=== PATIENT | female | born 1960 | race Caucasian/White ===

== ENCOUNTER 2016-06-18 08:35 | Day surgery (SDC) | payer BC ==
[2016-06-14 10:14] VITALS: BMI 25.0
[2016-06-18] MEDS ORDERED: PROPOFOL 20 ML ONE ×2 (08:42)
[2016-06-18] MEDS ORDERED: LIDOCAINE HCL/PF 2% SDV 5ML VIAL ONE (08:43)
[2016-06-18 10:33] VITALS: TEMP 97.4
[2016-06-18 10:56] VITALS: BP 118/78; PULSE 77
--- NOTE | 2016-06-19 11:49 | PATH ---
Surgical Pathology Report Patient Name: SRIRAM OLVERA [facility]. Rec. #: [id number] /Age/Gender: 1960 (Age: 55) / F Account: [id number] Location: [facility]-ENDOSCOPY Taken: 06/18/2016 Received: 06/18/2016 Reported: 06/19/2016 Physicians: Hua Dave M.D. Specimen(s) Received A: BX DUODENUM B: BX ANTRUM Clinical History GERD, rule out colon cancer Rule out celiac disease, gastritis, esophagitis Final Diagnosis A. DUODENUM, BIOPSY: DUODENAL MUCOSA WITH NO PATHOLOGIC CHANGES. NO HISTOLOGIC EVIDENCE OF GLUTEN SENSITIVE ENTEROPATHY (CELIAC SPRUE) IDENTIFIED. B. STOMACH, ANTRUM, BIOPSY: FOCAL MILD CHRONIC GASTRITIS. IMMUNOSTAIN FOR H. PYLORI IS NEGATIVE. Electronically Signed Raymond Zacarias M.D. Gross Description A. Received in formalin, labeled "duodenum" are 2 harris, irregular portions of soft tissue averaging 0.7 cm. in greatest dimension. The specimens are submitted in toto in one cassette. B. Received in formalin, labeled "antrum" are 2 harris, irregular portions of soft tissue measuring 0.4 and 0.5 cm. in greatest dimension. The specimens are submitted in toto in one cassette. 06/18/201606/18/2016
== END 2016-06-18 11:00 | disposition home or self-care (01) ==
LOC: FASU-ENDO 08:35
PROVIDERS: ATTEND Internal Medicine Gastroenterology
PROC: 0DB98ZX Excision of Duodenum, Via Natural or Artificial Opening Endoscopic, Diagnostic (ICD-10-PCS; principal; 2016-06-18 09:50)
PROC: 0DB68ZX Excision of Stomach, Via Natural or Artificial Opening Endoscopic, Diagnostic (ICD-10-PCS; 2016-06-18 09:50)
DX: K29.50 Unspecified chronic gastritis without bleeding (principal); K20.8 Other esophagitis; K44.9 Diaphragmatic hernia without obstruction or gangrene
CPT/HCPCS: 88305-TC; 88342-TC

== ENCOUNTER 2017-08-28 11:32 | Emergency (ER) | payer BC ==
[2017-08-28 11:48] VITALS: BP 139/92; PULSE 104; TEMP 99.1; BMI 25.7
--- NOTE | 2017-08-28 11:48 | PDOC ---
Rapid Medical Evaluation Chief Complaint: Pain, Acute Time Seen by Provider: 08/28/17 11:45 Medical Evaluation: Allergies Allergy/AdvReac Type Severity Reaction Status Date / Time No Known Allergies Allergy Verified 08/28/17 11:44 08/28/17 11:46 pt with no appendix with right lower mid abd pain since 4 am. no n/v/d/fever, no dysuria.
[2017-08-28 12:40] LABS: URINE APPEARANCE CLEAR; URINE BILIRUBIN NEGATIVE (NEGATIVE); URINE BLOOD NEGATIVE (NEGATIVE); URINE COLOR YELLOW; URINE GLUCOSE (UA) NEGATIVE (NEGATIVE); URINE KETONE NEGATIVE (NEGATIVE); URINE NITRITE NEGATIVE (NEGATIVE); URINE PROTEIN NEGATIVE (NEGATIVE); URINE UROBILINOGEN NEGATIVE mg/dL (0.2-1.0)
[2017-08-28 12:43] LABS: EPI CELLS FEW /HPF (FEW); URINE MUCUS RARE
--- NOTE | 2017-08-28 12:43 | PDOC ---
History of Present Illness - General Chief Complaint: Pain Stated Complaint: SUPRAPUBIC PAIN Time Seen by Provider: 08/28/17 11:45 History Source: Patient Exam Limitations: No Limitations - History of Present Illness Initial Comments: 08/28/17 12:41 Patient is a 56-year-old female, history of hypertension and intussusception at 4 months with surgical repair presents with mid lower abdominal pain, suprapubic pain and left lower quadrant pain which started abruptly at 4 AM. Patient describes pain as intermittent, stabbing. Had normal bowel movement this morning. Denies any pain on urination, no hematuria. No back pain. No pain associated with eating. Past Medical History: [Denies]. Allergies: No known allergies Medications: Hydrochlorothiazide and metoprolol Family History: Non-contributory Social History: Denies smoking, alcohol use, or IVDU Review of Systems GENERAL/CONSTITUTIONAL: [No fever or chills. No weakness. No weight change.] HEAD, EYES, EARS, NOSE AND THROAT: [No change in vision. No ear pain or discharge. No sore throat. ] CARDIOVASCULAR: [No chest pain or shortness of breath.] RESPIRATORY: [No cough, wheezing, or hemoptysis.] GASTROINTESTINAL: [No nausea, vomiting, diarrhea or constipation. No rectal bleeding. The pubic of left lower quadrant pain] GENITOURINARY: [No dysuria, frequency, or change in urination.] MUSCULOSKELETAL: [No joint or muscle swelling or pain. No neck or back pain.] SKIN : [No rash or easy bruising.] NEUROLOGIC: [No headache, vertigo, loss of consciousness, or loss of sensation.] PSYCHIATRIC: [No depression or anxiety.] ENDOCRINE: [No increased thirst. No abnormal weight change.] HEMATOLOGIC/LYMPHATIC: [No anemia, easy bleeding, or history of blood clots.] ALLERGIC/IMMUNOLOGIC: [No hives or skin allergy. No latex allergy.] Physical Exam: GENERAL: [The patient is awake, alert, and fully oriented, in no acute distress. ] HEAD: [Normal with no signs of trauma.] EYES: [Pupils equal, round and reactive to light, extraocular movements intact, sclera anicteric, conjunctiva clear.] ENT: [Ears normal, nares patent, oropharynx clear without exudates. Moist mucous membranes. No uvula deviation] NECK: [Normal range of motion, supple without lymphadenopathy, JVD, or masses.] LUNGS: [Breath sounds equal, clear to auscultation bilaterally. No wheezes, and no crackles.] HEART: [Regular rate and rhythm, normal S1 and S2 without murmur, rub or gallop. ] ABDOMEN: [Soft, nontender, normoactive bowel sounds. No guarding, no rebound. No masses. No bruising or abrasions] RECTAL : [Guaiac negative, normal rectal tone.] MUSCULOSKELETAL: [Normal range of motion, no edema. No clubbing or cyanosis. No cords, erythema, or tenderness. No CVA Tenderness with fist.] NEUROLOGICAL: [Cranial nerves II through XII grossly intact. Normal speech, normal gait.] PSYCH: [Normal mood, normal affect.] SKIN: [Warm, Dry, normal turgor, no rashes or lesions noted.] Past History - Past Medical History Allergies/Adverse Reactions: Allergies Allergy/AdvReac Type Severity Reaction Status Date / Time No Known Allergies Allergy Verified 08/28/17 11:44 Home Medications: Ambulatory Orders Hydrochlorothiazide 25 mg PO DAILY 06/14/16 Metoprolol Succinate [Toprol XL -] 25 mg PO DAILY 06/14/16 Ciprofloxacin HCl [Cipro] 500 mg PO BID #14 tablet 08/28/17 metroNIDAZOLE [Flagyl -] 500 mg PO TID #21 tablet 08/28/17 Anemia: No Asthma: No Cancer: No Cardiac Disorders: No CVA: No COPD: No CHF: No Dementia: No Diabetes: No GI Disorders: Yes (GERD) Disorders: No HTN: Yes Hypercholesterolemia: No Liver Disease: No Seizures: No Thyroid Disease: No - Surgical History Abdominal Surgery: Yes Appendectomy: Yes Cardiac Surgery: No Cholecystectomy: No Lung Surgery: No Neurologic Surgery: No Orthopedic Surgery: No - Suicide/Smoking/Psychosocial Hx Smoking History: Never smoked Have you smoked in the past 12 months: No Hx Alcohol Use: Yes Drug/Substance Use Hx: No Substance Use Type: Alcohol Hx Substance Use Treatment: No *Physical Exam - Vital Signs Last Vital Signs Temp Pulse Resp BP Pulse Ox 99.1 F 104 H 19 139/92 98 08/28/17 11:44 08/28/17 11:44 08/28/17 11:44 08/28/17 11:44 08/28/17 11:44 ED Treatment Course - LABORATORY CBC & Chemistry Diagram: 08/28/17 12:33 08/28/17 12:33 Medical Decision Making - Medical Decision Making 08/28/17 12:42 A/P: Patient with suprapubic, left lower quadrant pain started suddenly at 4 AM. Patient describes it as intermittent, stabbing. Initially upon arrival had no pain then had one episode while waiting. Patient did have normal bowel movement this morning, pain is not associated with that. Denies pain associated with eating. No fever. We'll send urinalysis, CBC, CMP 08/28/17 13:48 Laboratory Results - last 24 hr 08/28/17 08/28/17 08/28/17 12:17 12:17 12:33 WBC 10.9 H RBC 4.32 Hgb 13.1 Hct 39.0 MCV 90.3 MCH 30.3 MCHC 33.5 RDW 13.3 Plt Count 187 MPV 9.6 Neutrophils % 86.3 H Lymphocytes % 7.1 L Monocytes % 6.0 Eosinophils % 0.3 Basophils % 0.3 Sodium Potassium Chloride Carbon Dioxide Anion Gap BUN Creatinine Creat Clearance w eGFR Random Glucose Calcium Total Bilirubin AST ALT Alkaline Phosphatase Total Protein Albumin Urine Color Yellow Urine Appearance Clear Urine pH 5.0 Ur Specific [place] 1.019 Urine Protein Negative Urine Glucose (UA) Negative Urine Ketones Negative Urine Blood Negative Urine Nitrite Negative Urine Bilirubin Negative Urine Urobilinogen Negative Ur Leukocyte Esterase 1+ H Urine WBC (Auto) 8 Cancelled Urine RBC (Auto) 2 Cancelled Ur Epithelial Cells Few Cancelled Urine Crystals Cancelled Calcium Oxalate Crystal Cancelled Uric Acid Crystals Cancelled Triple Phos Crystals Cancelled Amorphous Phosphates Cancelled Amorphous Urates Cancelled Amorphous Sediment Cancelled Urine Bacteria Cancelled Urine Casts Cancelled Hyaline Casts Cancelled Granular Casts Cancelled Waxy Casts Cancelled RBC Casts Cancelled WBC Casts Cancelled Urine Mucus Rare Cancelled Urine Other Cancelled Urine Trichomonas Cancelled Urine Yeast Cancelled 08/28/17 12:33 WBC RBC Hgb Hct MCV MCH MCHC RDW Plt Count MPV Neutrophils % Lymphocytes % Monocytes % Eosinophils % Basophils % Sodium 139 Potassium 3.8 Chloride 102 Carbon Dioxide 26 Anion Gap 11 BUN 16 Creatinine 1.0 Creat Clearance w eGFR 57.78 Random Glucose 114 H Calcium 9.4 Total Bilirubin 1.0 AST 13 L ALT 25 Alkaline Phosphatase 87 Total Protein 7.5 Albumin 4.2 Urine Color Urine Appearance Urine pH Ur Specific [place] Urine Protein Urine Glucose (UA) Urine Ketones Urine Blood Urine Nitrite Urine Bilirubin Urine Urobilinogen Ur Leukocyte Esterase Urine WBC (Auto) Urine RBC (Auto) Ur Epithelial Cells Urine Crystals Calcium Oxalate Crystal Uric Acid Crystals Triple Phos Crystals Amorphous Phosphates Amorphous Urates Amorphous Sediment Urine Bacteria Urine Casts Hyaline Casts Granular Casts Waxy Casts RBC Casts WBC Casts Urine Mucus Urine Other Urine Trichomonas Urine Yeast 08/28/17 13:49 Patient with mildly elevated WBCs with shift. Urinalysis is unremarkable. Will send patient for CT scan abdomen and pelvis with by mouth and IV contrast patient with history of bowel altering surgery. 08/28/17 14:26 CT scan scheduled at 3:30. Patient with diverticulitis, afebrile, no nausea vomiting. We'll DC patient on low fiber diet, Cipro and Flagyl follow-up with gastroenterology. At any fever, nausea vomiting, or any other concerns return to ER *DC/Admit/Observation/Transfer Diagnosis at time of Disposition: Diverticulitis - Discharge Dispostion Disposition: HOME Condition at time of disposition: Stable Admit: No - Prescriptions Prescriptions: Ciprofloxacin HCl [Cipro] 500 mg PO BID #14 tablet metroNIDAZOLE [Flagyl -] 500 mg PO TID #21 tablet - Referrals Referrals: Kari Davis MD [Primary Care Provider] - Oneal Villegas MD [Staff Physician] - - Patient Instructions Printed Discharge Instructions: DI for Diverticulitis Additional Instructions: Low fiber diet, recommend follow-up with gastroenterology for evaluation Fever, increased pain, nausea vomiting, or any other concerns return immediately to the ER - Post Discharge Activity Forms/Work/School Notes: Back to Work
[2017-08-28 12:47] LABS: BASO % 0.3 % (0-2.0); EOS % 0.3 % (0-4.5); HEMOGLOBIN 13.1 GM/dL (10.7-15.3); LYMPH % 7.1 % (8-40); MCH 30.3 pg (25.7-33.7); MCHC 33.5 g/dl (32.0-36.0); MEAN CELL VOLUME 90.3 fl (80-96); MEAN PLT VOLUME 9.6 fl (7.5-11.1); NEUT % 86.3 % (42.8-82.8); PLATELET COUNT 187 K/MM3 (134-434); RBC 4.32 M/mm3 (3.60-5.2); RDW 13.3 % (11.6-15.6); WHITE BLOOD COUNT 10.9 K/mm3 (4.0-10.0)
[2017-08-28 12:52] LABS: URINE LEUK ESTERASE 1+ (NEGATIVE)
[2017-08-28 13:20] LABS: ALBUMIN 4.2 g/dl (3.4-5.0); ANION GAP 11 (8-16); BLOOD UREA NITROGEN 16 mg/dL (7-18); CALCIUM 9.4 mg/dL (8.5-10.1); CHLORIDE 102 mmol/L (98-107); CO2 26 mmol/L (21-32); GLUCOSE,RANDOM 114 mg/dL (74-106); POTASSIUM 3.8 mmol/L (3.5-5.1); SGOT/AST 13 U/L (15-37); SGPT/ALT 25 U/L (12-78); SODIUM 139 mmol/L (136-145)
[2017-08-28 13:22] LABS: ALK PHOS 87 U/L (45-117); TOT PROT 7.5 g/dl (6.4-8.2)
== END 2017-08-28 17:14 | disposition home or self-care (01) ==
LOC: JERFT 11:32
DX: K57.92 Diverticulitis of intestine, part unspecified, without perforation or abscess without bleeding (principal); I10 Essential (primary) hypertension; K21.9 Gastro-esophageal reflux disease without esophagitis
CPT/HCPCS: 36415; 74177-TC; 80053; 81003; 81015; 85025; 99282-25